=== PATIENT | male | born 1970 | race Caucasian/White ===

== ENCOUNTER 2017-01-09 10:17 | Emergency (ER) | payer BC ==
[2017-01-09 10:22] VITALS: BP 136/89
--- NOTE | 2017-01-09 11:06 | UC ---
Eye Complaint HPI - History of Current Complaint Hx Obtained From: Patient Onset/Duration: Sudden Onset - started 5 days ago with "weird sensation" in L eye during [place] travel. rubbed eye, never got worse, but continued to be irritated, now has more thick d/c in L eye and seems to be spreading to R eye since yesterday Timing: Constant Severity Initially: Moderate Severity Currently: Mild Character: Dull Aggravating Factor(s): Nothing Alleviating Factor(s): Other - rubbing eye Associated Signs And Symptoms: Positive: Drainage (Purulent) - white/yellowish - Risk Factors Penetrating Injury Risk Factor: Negative <Cortes Laguerre - Last Filed: 01/09/17 10:58> <Paloma Parra - Last Filed: 01/10/17 14:24> - History of Current Complaint Chief Complaint: UCEye Stated Complaint: EYE ISSUE Time Seen by Provider: 01/09/17 10:56 - Allergies/Home Medications Allergies/Adverse Reactions: Allergies Allergy/AdvReac Type Severity Reaction Status Date / Time No Known Allergies Allergy Verified 07/07/16 09:05 PMH/Surg Hx/FS Hx/Imm Hx Previously Healthy: Yes Endocrine History: Diabetes, Dyslipidemia Cardiovascular History: Other - gout Other Cardiovascular History: gout - Surgical History Surgical History: Yes Surgery Procedure, Year, and Place: kidney stone removal. B/L achilles tendon repair - Family History Known Family History: Positive: None - Social History Occupation: Employed Full-time - [employer] Lives: With Family Alcohol Use: Rare Substance Use Type: None Smoking Status (MU): Former Smoker Amount Used/How Often: 1/2 PACK A DAY Length of Time of Smoking/Using Tobacco: 10 YEARS Have You Smoked in the Last Year: No When Did the Patient Quit Smoking/Using Tobacco: 1984 <Cortes Laguerre - Last Filed: 01/09/17 10:58> Review of Systems Constitutional: Negative Skin: Negative Eyes: Drainage, Eye Redness ENT: Negative Respiratory: Negative Cardiovascular: Negative Neurological: Negative Psychological: Negative All Other Systems Reviewed And Are Negative: Yes <Cortes Laguerre - Last Filed: 01/09/17 10:58> Physical Exam Triage Information Reviewed: Yes Appearance: Well-Appearing, No Pain Distress, Well-Nourished Vital Signs: Initial Vital Signs Temp 98 F 01/09/17 10:19 Pulse 92 01/09/17 10:19 Resp 16 01/09/17 10:19 BP 136/89 01/09/17 10:19 Pulse Ox 100 01/09/17 10:19 Eyes: Positive: Conjunctiva Inflamed - L worse than R. Negative: Discharge ENT: Positive: Normal ENT inspection Respiratory Exam: Normal Cardiovascular Exam: Normal Abdominal Exam: Normal Neurological Exam: Normal Psychological Exam: Normal Skin Exam: Normal <Cortes Laguerre - Last Filed: 01/09/17 10:58> Vital Signs: Initial Vital Signs Temp 98 F 01/09/17 10:19 Pulse 92 01/09/17 10:19 Resp 16 01/09/17 10:19 BP 136/89 01/09/17 10:19 Pulse Ox 100 01/09/17 10:19 <Paloma Parra - Last Filed: 01/10/17 14:24> Eye Complaint Course/Dx - Differential Dx/Diagnosis Differential Diagnosis/HQI/PQRI: Conjunctivitis, Corneal Abrasion, Foreign Body Provider Diagnoses: conjunctivitis <Cortes Laguerre - Last Filed: 01/09/17 10:58> Discharge <Cortes Laguerre - Last Filed: 01/09/17 10:58> <Paloma Parra - Last Filed: 01/10/17 14:24> - Discharge Plan Condition: Good Disposition: HOME Prescriptions: Ofloxacin 0.3%(Ophth)(Nf) [Ocuflox OPTH 0.3%(NF)] 2 drop BOTH EYES QID #1 btl Patient Education Materials: Conjunctivitis (ED) Referrals: Wellingtno Pickett MD [Primary Care Provider] - Additional Instructions: use good hand washing use eye drops as prescribed Attestation Statement User Type: Provider - I was available for consult. This patient was seen by the advanced practice provider. The patient was not presented to, seen by, or examined by me.-Alonzo <Paloma Parra - Last Filed: 01/10/17 14:24>
== END 2017-01-09 11:22 | disposition home or self-care (01) ==
LOC: UCEAST 10:17
DX: H10.33 Unspecified acute conjunctivitis, bilateral (principal); E11.8 Type 2 diabetes mellitus with unspecified complications; E78.5 Hyperlipidemia, unspecified; Z87.442 Personal history of urinary calculi; Z87.891 Personal history of nicotine dependence
CPT/HCPCS: 99212; G0463

== ENCOUNTER 2019-02-15 07:01 | Emergency (ER) | payer BC, OTHER ==
[2019-02-15 07:11] VITALS: BP 142/82
--- NOTE | 2019-02-15 07:22 | UC ---
Knee Pain HPI - HPI Summary HPI Summary: Patient is a 48-year-old male, no significant past medical history, here with bilateral knee injuries. 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 Incident occurred roughly 1 month ago. Patient's had pain in both his knees that is worse on the right. Patient's pain is located on the medial aspect of his knees. Patients knees swell at the end of the day but respond to rest and icing. Patient is able to ambulate without difficulty. Patient has been able to work his job without change. Patient did have immediate swelling in his right knee following this incident. Medications reviewed - History of Current Complaint Chief Complaint: UCLowerExtremity Stated Complaint: KNEE PAIN Time Seen by Provider: 02/15/19 07:14 Hx Obtained From: Patient Onset/Duration: Sudden Onset Severity Initially: Moderate Severity Currently: Mild Pain Intensity: 3 - Allergies/Home Medications Allergies/Adverse Reactions: Allergies Allergy/AdvReac Type Severity Reaction Status Date / Time No Known Allergies Allergy Verified 02/15/19 07:11 Home Medications: Home Medications Dapagliflozin/Metformin HCl [Xigduo Xr 10-1000 mg] 1 tab PO DAILY 02/15/19 [ History Confirmed 02/15/19] metFORMIN* [Glucophage 500 MG TAB *] 500 mg PO DAILY 02/15/19 [History Confirmed 02/15/19] PMH/Surg Hx/FS Hx/Imm Hx Previously Healthy: Yes - Surgical History Surgical History: Yes Surgery Procedure, Year, and Place: kidney stone removal. B/L achilles tendon repair - Family History Known Family History: Positive: None, Non-Contributory - Social History Alcohol Use: Rare Substance Use Type: None Smoking Status (MU): Former Smoker Amount Used/How Often: 1/2 PACK A DAY Length of Time of Smoking/Using Tobacco: 10 YEARS Have You Smoked in the Last Year: No When Did the Patient Quit Smoking/Using Tobacco: 1984 Review of Systems All Other Systems Reviewed And Are Negative: Yes Motor: Negative: Decreased ROM, Weakness Neurovascular: Negative: Decreased Sensation Physical Exam - Summary Physical Exam Summary: Vital Signs Reviewed: Yes A+Ox3, no distress Eyes: Conjunctiva Clear ENT: Hearing grossly normal neck: supple Respiratory: Positive: No respiratory distress, No accessory muscle use Cardiovascular: skin color reflect adequate perfusion Musculoskeletal Exam Right knee: No swelling or ecchymosis. Full range of motion both active and passive modality. Neg anterior or posterior drawer sign. No medial or lateral joint laxity. Mild area of tenderness just superior and medial to the patella Left knee: No swelling or ecchymosis. Full range of motion both active and passive modality. No anterior or posterior drawer sign. No medial or lateral joint laxity. No ttp Neurological: Positive: Alert, ambulatory without difficulty Vital Signs: Initial Vital Signs Temp 97.5 F 02/15/19 07:07 Pulse 84 02/15/19 07:07 Resp 16 02/15/19 07:07 BP 142/82 02/15/19 07:07 Pulse Ox 95 02/15/19 07:07 Knee Pain Course/Dx - Course Course Of Treatment: Patient is here 1 month after injuring both of his knees. Patient had an overall unremarkable exam and did not need any x-rays for fracture. Patient likely sprained his bilateral medial ligaments. Patient is treating his knees appropriately but was referred to physical therapy and orthopedic surgery for further evaluation if his symptoms do not resolve. Patient's blood pressure was found to be higher than 140/90 and he was instructed to follow up with his primary care doctor to have that rechecked. - Differential Dx/Diagnosis Differential Diagnosis/HQI/PQRI: Abrasion, Contusion, Dislocation, Fracture ( Closed), Internal Derangement Of Knee, Sprain, Strain Provider Diagnosis: Knee sprain, bilateral Discharge - Sign-Out/Discharge Documenting (check all that apply): Patient Departure All imaging exams completed and their final reports reviewed: No Studies - Discharge Plan Condition: Stable Disposition: HOME Prescriptions: Indomethacin CAP* [Indocin CAP*] 25 mg PO TID PRN #30 cap PRN Reason: Pain Patient Education Materials: Knee Sprain (ED) Referrals: Wellington Pickett MD [Primary Care Provider] - Shweta Newman MD [Medical Doctor] - Additional Instructions: Please use a knee brace when your knees are swollen Please ice your knees at the end of the day. Please use your medicines as needed for pain Please use your physical therapy referral - Billing Disposition and Condition Condition: STABLE Disposition: Home
== END 2019-02-15 07:30 | disposition home or self-care (01) ==
LOC: UCEAST 07:01
DX: S83.92XA Sprain of unspecified site of left knee, initial encounter (principal); S83.91XA Sprain of unspecified site of right knee, initial encounter; W18.30XA Fall on same level, unspecified, initial encounter; Y93.89 Activity, other specified; Y92.410 Unspecified street and highway as the place of occurrence of the external cause; Y99.0 Civilian activity done for income or pay
CPT/HCPCS: 99212; G0463